=== PATIENT | male | born 1970 | race Caucasian/White ===

== ENCOUNTER → 2017-12-04 | Outpatient (CLI) | payer OTHER ==
[~2017-12-04] MED LIST: ALBU6.7H INH; BUSP15TA PO; CHLORHEXIDINE GLUCONATE 2 % 1 PACK (2 CLOTHS) TOPICAL PRN; DO NOT ADM ANY ANTICOAGULANT DRUGS PRN; LACTATED RINGER'S 1000 ML IV PRN; LIDOCAINE HCL 1% PF 5 ML SYRINGE OTHER ONE; LITH300 OR; LORA-392 PO; METH10TA PO; METH40TA9 PO; METOPROLOL TARTRATE 25 MG TAB PO PRN; NEUR300C PO; POVIDONE IODINE 5% (ANTISEPSIS KIT) 4 APPLICATIONS EACH NARE PRN; PROPOFOL 200 MG/20 ML AMP IV ONE; SERO300T2 PO; SODIUM CHLORID 0.9% 500 ML IV PRN; TRAZ150T2 PO; VENTAER INH; VIST25CA PO; ZYPR15TA PO; [UNRECOGNIZED DRUG - OTHER]
--- NOTE | 2017-12-04 17:57 | PD.PROCEDR ---
GI Procedure PROCEDURE PERFORMED EGD with dilation over a guidewire with a savory dilator INDICATION FOR PROCEDURE Dysphagia, history of achalasia PROCEDURE: The procedure, risks and benefits were discussed with Patient/POA and informed consent was obtained. Anesthesia sedated Patient with Diprivan. Patient was placed in the left lateral decubitus position. EGD: The Pentax videoscope was introduced through the oropharynx and advanced to the second portion of the duodenum under direct visualization. Retroflexion was performed in the stomach. FINDINGS: The esophagus this appeared to be unremarkable and within normal limits Stomach there was a large gastric pouch for which a narrowed opening was found I was able to pass the scope and this opened up into the rest of the stomach where I noted the gastric body antrum and pylorus the gastric mucosa appeared to be unremarkable with normal limits this is an indication of a prior surgical intervention apparently the patient has had some form of gastric constricting surgery for weight loss most likely because a suture was noted in the stomach but as mentioned before the gastric mucosa appeared to be unremarkable and within normal limits I went ahead and dilated the narrowed lumen of the stomach that connects the pouch to the rest of the stomach with a savory dilator size 18 mm over a guidewire postdilatation view was unremarkable The duodenum also appeared to be unremarkable and within normal limits ESTIMATED BLOOD LOSS: None SPECIMENS REMOVED: None COMPLICATIONS: None IMPRESSION: Surgical changes to the stomach 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
[2017-12-04 18:28] VITALS: BP 133/96; PULSE 88; RESP 16; TEMP 98; O2SAT 97
== END ==
LOC: HEND 13:48
PROVIDERS: ATTEND Internal Medicine Gastroenterology
DX: R13.10 Dysphagia, unspecified (principal); K22.0 Achalasia of cardia; K31.89 Other diseases of stomach and duodenum; F17.210 Nicotine dependence, cigarettes, uncomplicated
CPT/HCPCS: 00731; 43248; C1769